=== PATIENT | female | born 1950 | race Caucasian/White ===

== ENCOUNTER → 2017-02-16 | Outpatient (CLI) | payer MEDICARE, OTHER ==
[2017-02-16 11:49] LABS: Cholesterol 148 mg/dL (<200); HDL Cholesterol 52 mg/dL (40-60); Triglycerides 225 mg/dL (<150)
== END | disposition home or self-care (01) ==
LOC: LABWHC1 10:53
PROVIDERS: ATTEND Internal Medicine Interventional Cardiology
DX: E78.5 Hyperlipidemia, unspecified (principal)
CPT/HCPCS: 36415; 80061

== ENCOUNTER 2021-04-17 13:34 | Observation (INO) | payer MEDICARE, OTHER ==
[2021-04-17 14:07] LABS: Glucose,Whole Blood 178 mg/dL (75-99)
[2021-04-17] MEDS ORDERED: SODIUM CHLORIDE 0.9% 500 ML 500 ML IV ONE (14:13)
--- NOTE | 2021-04-17 14:19 | ED ---
General Adult HPI - General Chief complaint: Altered Mental Status Stated complaint: Confusion Time Seen by Provider: 04/17/21 13:40 Source: patient, RN notes reviewed, old records reviewed Mode of arrival: ambulatory Limitations: no limitations - History of Present Illness Initial comments: This is a 71-year-old female presents emergency Department with the complaint that for about 20 minutes she had not remembered anything she had done this morning but currently she remembers everything she had done except having gone to a fast food place this morning . Daughter states she was normal and then there was a 20 minute period where she couldn't remember any of the events that she had done this morning and then after that the patient was back to her baseline. Patient states she does have a headache which was much worse yesterday and she was getting a visual aura yesterday as well as a little visual aura today. Patient denies any numbness weakness. Daughter states was no slurred speech no facial droop. Patient denies any recent fever chills or cough. Patient denies any chest pain difficulty breathing shortness of breath per patient denies any abdominal pain patient denies nausea vomiting diarrhea. - Related Data Allergies Allergy/AdvReac Type Severity Reaction Status Date / Time No Known Allergies Allergy Verified 04/17/21 13:45 Review of Systems ROS Statement: Those systems with pertinent positive or pertinent negative responses have been documented in the HPI. ROS Other: All systems not noted in ROS Statement are negative. Past Medical History Past Medical History: Coronary Artery Disease (CAD), Hyperlipidemia, Hypertension History of Any Multi-Drug Resistant Organisms: None Reported Past Surgical History: Cholecystectomy, Heart Catheterization With Stent Additional Past Surgical History / Comment(s): Stents Past Psychological History: No Psychological Hx Reported Smoking Status: Never smoker Past Alcohol Use History: Occasional Past Drug Use History: None Reported General Exam - General Exam Comments Initial Comments: GENERAL: Patient is well-developed and well-nourished. Patient is nontoxic and well- hydrated and is in no acute distress. ENT: Neck is soft and supple. No significant lymphadenopathy is noted. Oropharynx is clear. Moist mucous membranes. Neck has full range of motion without eliciting any pain. EYES: The sclera were anicteric and conjunctiva were pink and moist. Extraocular movements were intact and pupils were equal round and reactive to light. Eyelids were unremarkable. PULMONARY: Unlabored respirations. Good breath sounds bilaterally. No audible rales rhonchi or wheezing was noted. CARDIOVASCULAR: There is a regular rate and rhythm without any murmurs gallops or rubs. ABDOMEN: Soft and nontender with normal bowel sounds. SKIN: Skin is clear with no lesions or rashes and otherwise unremarkable. NEUROLOGIC: Patient is alert and oriented x3. Cranial nerves II through XII are grossly intact. Motor and sensory are also intact. Normal speech, volume and content. Symmetrical smile. MUSCULOSKELETAL: Normal extremities with adequate strength and full range of motion. No lower extremity swelling or edema. No calf tenderness. LYMPHATICS: No significant lymphadenopathy is noted PSYCHIATRIC: Normal psychiatric evaluation. Limitations: no limitations Course Vital Signs 04/17/21 04/17/21 04/17/21 13:41 14:15 15:00 Temperature 98.3 F Pulse Rate 54 L 78 70 Respiratory 20 16 18 Rate Blood Pressure 188/94 164/72 164/82 O2 Sat by Pulse 97 97 97 Oximetry Medical Decision Making - Medical Decision Making EKG shows sinus rhythm with occasional PVC at a rate of 74 bpm MS interval is 154 QRS is 94 QT interval 384 QTC is 426 per patient's EKG shows ST segment depression and T-wave inversion inferiorly. Currently no old EKG compared found. CT of the brain shows no acute abnormality. Chest x-ray shows no acute normalities. Patient still does not remember eating at a fast food place but everything else this morning she does not remember. I spoke with Dr. Abiel Hdez and he thought it was a good idea for the patient to be admitted to be further evaluated. Patient was in agreement. I spoke with Dr. Weinstein he agreed to admit the patient admitted the patient wrote admitting orders. - Lab Data Result diagrams: 04/17/21 14:19 04/17/21 14:19 Lab Results 04/17/21 04/17/21 04/17/21 Range/Units 14:05 14:19 14:19 WBC 6.9 (3.8-10.6) k/uL RBC 3.97 (3.80-5.40) m/uL Hgb 13.2 (11.4-16.0) gm/dL Hct 37.5 (34.0-46.0) % MCV 94.4 (80.0-100.0) fL MCH 33.1 (25.0-35.0) pg MCHC 35.1 (31.0-37.0) g/dL RDW 13.4 (11.5-15.5) % Plt Count 270 (150-450) k/uL MPV 7.8 Neutrophils % 61 % Lymphocytes % 27 % Monocytes % 4 % Eosinophils % 6 % Basophils % 1 % Neutrophils # 4.2 (1.3-7.7) k/uL Lymphocytes # 1.9 (1.0-4.8) k/uL Monocytes # 0.3 (0-1.0) k/uL Eosinophils # 0.4 (0-0.7) k/uL Basophils # 0.1 (0-0.2) k/uL Sodium (137-145) mmol/L Potassium (3.5-5.1) mmol/L Chloride (98-107) mmol/L Carbon Dioxide (22-30) mmol/L Anion Gap mmol/L BUN (7-17) mg/dL Creatinine (0.52-1.04) mg/dL Est GFR (CKD-EPI)AfAm (>60 ml/min/1.73 sqM) Est GFR (CKD-EPI)NonAf (>60 ml/min/1.73 sqM) Glucose (74-99) mg/dL POC Glucose (mg/dL) 178 H (75-99) mg/dL POC Glu Assistant Distribution Manager ID Calcium (8.4-10.2) mg/dL Total Bilirubin (0.2-1.3) mg/dL AST (14-36) U/L ALT (4-34) U/L Alkaline Phosphatase (38-126) U/L Troponin I (0.000-0.034) ng/mL Total Protein (6.3-8.2) g/dL Albumin (3.5-5.0) g/dL Urine Color Light Yellow Urine Appearance Clear (Clear) Urine pH 6.5 (5.0-8.0) Ur Specific [place] 1.008 (1.001-1.035) Urine Protein Negative (Negative) Urine Glucose (UA) Negative (Negative) Urine Ketones Negative (Negative) Urine Blood Negative (Negative) Urine Nitrite Negative (Negative) Urine Bilirubin Negative (Negative) Urine Urobilinogen <2.0 (<2.0) mg/dL Ur Leukocyte Esterase Negative (Negative) Urine Opiates Screen Detected H (NotDetected) Ur Oxycodone Screen Not Detected (NotDetected) Urine Methadone Screen Not Detected (NotDetected) Ur Propoxyphene Screen Not Detected (NotDetected) Ur Barbiturates Screen Not Detected (NotDetected) U Tricyclic Antidepress Not Detected (NotDetected) Ur Phencyclidine Scrn Not Detected (NotDetected) Ur Amphetamines Screen Not Detected (NotDetected) U Methamphetamines Scrn Not Detected (NotDetected) U Benzodiazepines Scrn Not Detected (NotDetected) Urine Cocaine Screen Not Detected (NotDetected) U Marijuana (THC) Screen Not Detected (NotDetected) 04/17/21 04/17/21 Range/Units 14:19 14:19 WBC (3.8-10.6) k/uL RBC (3.80-5.40) m/uL Hgb (11.4-16.0) gm/dL Hct (34.0-46.0) % MCV (80.0-100.0) fL MCH (25.0-35.0) pg MCHC (31.0-37.0) g/dL RDW (11.5-15.5) % Plt Count (150-450) k/uL MPV Neutrophils % % Lymphocytes % % Monocytes % % Eosinophils % % Basophils % % Neutrophils # (1.3-7.7) k/uL Lymphocytes # (1.0-4.8) k/uL Monocytes # (0-1.0) k/uL Eosinophils # (0-0.7) k/uL Basophils # (0-0.2) k/uL Sodium 139 (137-145) mmol/L Potassium 4.3 (3.5-5.1) mmol/L Chloride 105 (98-107) mmol/L Carbon Dioxide 24 (22-30) mmol/L Anion Gap 10 mmol/L BUN 22 H (7-17) mg/dL Creatinine 0.90 (0.52-1.04) mg/dL Est GFR (CKD-EPI)AfAm 76 (>60 ml/min/1.73 sqM) Est GFR (CKD-EPI)NonAf 66 (>60 ml/min/1.73 sqM) Glucose 176 H (74-99) mg/dL POC Glucose (mg/dL) (75-99) mg/dL POC Glu Assistant Distribution Manager ID Calcium 10.3 H (8.4-10.2) mg/dL Total Bilirubin 0.8 (0.2-1.3) mg/dL AST 27 (14-36) U/L ALT 26 (4-34) U/L Alkaline Phosphatase 89 (38-126) U/L Troponin I <0.012 (0.000-0.034) ng/mL Total Protein 7.4 (6.3-8.2) g/dL Albumin 4.6 (3.5-5.0) g/dL Urine Color Urine Appearance (Clear) Urine pH (5.0-8.0) Ur Specific [place] (1.001-1.035) Urine Protein (Negative) Urine Glucose (UA) (Negative) Urine Ketones (Negative) Urine Blood (Negative) Urine Nitrite (Negative) Urine Bilirubin (Negative) Urine Urobilinogen (<2.0) mg/dL Ur Leukocyte Esterase (Negative) Urine Opiates Screen (NotDetected) Ur Oxycodone Screen (NotDetected) Urine Methadone Screen (NotDetected) Ur Propoxyphene Screen (NotDetected) Ur Barbiturates Screen (NotDetected) U Tricyclic Antidepress (NotDetected) Ur Phencyclidine Scrn (NotDetected) Ur Amphetamines Screen (NotDetected) U Methamphetamines Scrn (NotDetected) U Benzodiazepines Scrn (NotDetected) Urine Cocaine Screen (NotDetected) U Marijuana (THC) Screen (NotDetected) Disposition Clinical Impression: TIA (transient ischemic attack) Disposition: ADMITTED IP TO THIS [facility] Referrals: Osman Estrada MD [Primary Care Provider] - 1-2 days Time of Disposition: 16:14
[2021-04-17 14:41] LABS: Appearance,Urine Clear (Clear); Basophils # (A) 0.1 k/uL (0-0.2); Basophils % (A) 1 %; Bilirubin,Urine Negative (Negative); Blood,Urine Negative (Negative); Color,Urine Light Yellow; Eosinophils # (A) 0.4 k/uL (0-0.7); Eosinophils % (A) 6 %; Glucose,Urine (UA) Negative (Negative); HCT 37.5 % (34.0-46.0); HGB 13.2 gm/dL (11.4-16.0); Ketones,Urine Negative (Negative); Leukocyte Esterase,Urine Negative (Negative); Lymphocytes # (A) 1.9 k/uL (1.0-4.8); Lymphocytes % (A) 27 %; MCH 33.1 pg (25.0-35.0); MCHC 35.1 g/dL (31.0-37.0); MCV 94.4 fL (80.0-100.0); Mean Platelet Volume 7.8; Monocytes # (A) 0.3 k/uL (0-1.0); Monocytes % (A) 4 %; Neutrophils # (A) 4.2 k/uL (1.3-7.7); Neutrophils % (A) 61 %; Nitrite,Urine Negative (Negative); PH, Urine 6.5 (5.0-8.0); Platelet Count 270 k/uL (150-450); Protein,Urine Negative (Negative); RBC 3.97 m/uL (3.80-5.40); RDW 13.4 % (11.5-15.5); Specific Gravity,Urine 1.008 (1.001-1.035); Urobilinogen,Urine <2.0 mg/dL (<2.0); WBC 6.9 k/uL (3.8-10.6)
--- NOTE | 2021-04-17 14:48 | CT ---
EXAMINATION TYPE: CT brain wo con DATE OF EXAM: 04/17/2021 HISTORY: AMS and weakness CT DLP: 1035.4 mGycm. Automated Exposure Control for Dose Reduction was Utilized. TECHNIQUE: CT scan of the head is performed without contrast. COMPARISON: None. FINDINGS: There is no acute intracranial hemorrhage or midline shift identified. There is mild diff use ventricular and sulcal prominence consistent with diffuse age-related cerebral atrophy. There is mild to moderate low-attenuation in the periventricular white matter consistent with chronic small v essel ischemic change. The globes are intact and the visualized sinuses are clear. Patchy cerumen bilateral external auditory canals. IMPRESSION: No acute intracranial hemorrhage or midline shift. There is mild diffuse cerebral atrop hy and mild to moderate chronic small vessel ischemic change noted.
--- NOTE | 2021-04-17 14:49 | XR ---
EXAMINATION TYPE: XR chest 2V DATE OF EXAM: 04/17/2021 COMPARISON: NONE HISTORY: Weakness. TECHNIQUE: Frontal and lateral views of the chest are obtained. FINDINGS: There is chronic parenchymal change without suspicious focal air space opacity, pleural ef fusion, or pneumothorax seen. The cardiac silhouette size is within normal limits. S shaped scoliosi s with multilevel spurring in the spine. IMPRESSION: No acute cardiopulmonary process.
[2021-04-17 14:53] LABS: Amphetamine Screen,Urine Not Detected (NotDetected); Barbiturate Screen,Urine Not Detected (NotDetected); Benzodiazepines Screen,Urine Not Detected (NotDetected); Cocaine Screen,Urine Not Detected (NotDetected); Methadone Screen, Urine Not Detected (NotDetected); Opiate Screen,Urine Detected (NotDetected); Oxycodone Screen, Urine Not Detected (NotDetected); Phencyclidine Screen,Urine Not Detected (NotDetected); Tricyclic Antidepressant,Urine Not Detected (NotDetected); Urn Cannabinoid Scrn Not Detected (NotDetected)
[2021-04-17 14:55] LABS: Albumin 4.6 g/dL (3.5-5.0); Calcium 10.3 mg/dL (8.4-10.2); Potassium 4.3 mmol/L (3.5-5.1); Total Bilirubin 0.8 mg/dL (0.2-1.3); Total Protein 7.4 g/dL (6.3-8.2)
[2021-04-17] MEDS ORDERED: ASPIRIN 325 MG TAB PO STA (16:14)
--- NOTE | 2021-04-17 21:31 | P.HPIM ---
History of Present Illness H&P Date: 04/17/21 Chief Complaint: TIA/CVA, temporary amnesia, severe headache, history of CAD with stent plac HISTORY OF PRESENT ILLNESS 71-year-old female one of Dr. Estrada patient with past medical history of CAD post angioplasty and stent placement of right coronary artery back in 2012, patient also known to have history of hypertension, hyperlipidemia, hyperglycemia who has been doing well, earlier today patient developed to have right-sided frontal headache above the right eye she took [place] at the time minute ended up going with her daughter to one of the hardware store and patient might then developed to have significant amnesia had lost time from before and after she described visual aura with visual hallucination at the time but never had any sign of amnesia in the past. Sort of headache earlier was most likely migraine type the patient has not seen any neurologist was not labile and he classified previously. [place] patient was seen in demurs department evaluated ended up going for testing including CT of the brain showed no acute intracranial hemorrhage there is mild diffuse cerebral atrophy and mild to moderate chronic small vessel disease only. Laboratory values showed mildly elevated blood sugar with calcium of 10.3 her urine was negative drug screen showed sign of. Most likely from hydrocodone, blood sugar was quite bit high around 176 rest of her lab work it. Admit patient to demurs department and apparently the decision was after talking to neurology about keeping patient for workup on her amnesia to treated as a CVA patient be seen neurology possibly MRI of the brain will be done carotid and echo will be order patient [place] exam will be done every 2 hours overnight. In the meanwhile target control her blood pressure better and see if he have any further episodes and start patient on physical therapy. REVIEW OF SYSTEMS Constitutional: No fever, no chills, no night sweats. No weight change. No weakness, fatigue or lethargy. No daytime sleepiness. Mild amnesia early and slight visual aura. EENT: Positive headache. Positive blurred vision or double vision, no loss of vision. No loss of Hearing, no ringing in the ears, no dizziness. No nasal drainage or congestion. No epistaxis. No sore throat. Lungs: No shortness of breath, cough, no sputum production. No wheezing. Cardiovascular: No chest pain, no lower extremity edema. No palpitations. No paroxysmal nocturnal dyspnea. No orthopnea. No lightheadedness or dizziness. No syncopal episodes. Abdominal: No abdominal pain. No nausea, vomiting. No diarrhea. No constipation. No bloody or tarry stools.. No loss of appetite. Genitourinary: No dysuria, increased frequency, urgency. No urinary retention. Musculoskeletal: No myalgias. No muscle weakness, no gait dysfunction, no frequent falls. No back pain. No neck pain. Integumentary: No wounds, no lesions. No rash or pruritus. No unusual bruising. No change in hair or nails. Neurologic: Still described mild amnesia otherwise patient is alert and oriented with no focal deficit.. Psychiatric: No depression. No anxiety. No mood swings. Endocrine: No abnormal blood sugars. No weight change. No excessive sweating or thirst. No cold intolerance. SOCIAL HISTORY She does not smoke, drink psychosocially she is a retired used to work in factory,. She is and live with her . FAMILY HISTORY Father age 57 from CAD, mother age 74 from CVA, patient had to sister both living and well one brother with no major medical problem. PHYSICAL EXAMINATION Gen: This is a well-developed laying in bed does not look in any respiratory distress may be mildly overweight only. HEENT: Head is atraumatic, normocephalic. Pupils equal, round. Sclerae is anicteric. NECK: Supple. No JVD. No lymphadenopathy. No thyromegaly. LUNGS: Clear to auscultation. No wheezes or rhonchi. No intercostal retractions. HEART: Regular rate and rhythm. No murmur. ABDOMEN: Soft. Bowel sounds are present. No masses. No tenderness. EXTREMITIES: No pedal edema. No calf tenderness. NEUROLOGICAL: Patient is awake, alert and oriented x3. Cranial nerves 2 through 12 are grossly intact. ASSESSMENT AND PLAN 1 TIA/CVA: With amnesia not clear etiology, could be tiny stroke, could be metabolic problem electrolyte imbalance infection and other. CAT scan of the brain did not show any abnormality carotid and echo along with EEG be done. 2 acute amnesia: Secondary to TIA or CVA not a clear etiology otherwise continue supportive care speech physical therapy be started patient might benefit from being on antiplatelet agent. 3 atherosclerotic heart disease: Patient remain seen cardiology on regular basis has been on metoprolol, losartan, atorvastatin. 4 hypothyroidism: Remain on levothyroxine 125 g daily. 5 migraine/atypical advance headache, patient remain not symptomatic at this point. 7 DVT prophylaxis: Continue patient on aspirin. 8 GI prophylaxis: Continue Pepcid with good result.. CODE STATUS: Full code. Admit patient to the hospital for overnight stay. Past Medical History Past Medical History: Coronary Artery Disease (CAD), Hyperlipidemia, Hypertension History of Any Multi-Drug Resistant Organisms: None Reported Past Surgical History: Cholecystectomy, Heart Catheterization With Stent Additional Past Surgical History / Comment(s): Stents Date of Last Stent Placement:: 01/2013 Past Psychological History: No Psychological Hx Reported Smoking Status: Never smoker Past Alcohol Use History: Occasional Past Drug Use History: None Reported Medications and Allergies Home Medications Medication Instructions Recorded Confirmed Type Allopurinol [Zyloprim] 100 mg PO DAILY 04/17/21 04/17/21 History Aspirin EC [Ecotrin Low Dose] 81 mg PO HS 04/17/21 04/17/21 History Atorvastatin Calcium [Lipitor] 10 mg PO HS 04/17/21 04/17/21 History Calcium Carbonate [Calcium] 600 mg PO HS 04/17/21 04/17/21 History Cetirizine HCl 10 mg PO DAILY PRN 04/17/21 04/17/21 History Cholecalciferol [Vitamin D3 (25 50 mcg PO DAILY 04/17/21 04/17/21 History Mcg = 1000 Iu)] Famotidine [Pepcid AC] 10 mg PO DAILY PRN 04/17/21 04/17/21 History HYDROcodone/APAP 7.5-325MG [[place] 1 tab PO Q6H PRN 04/17/21 04/17/21 History 7.5-325] Ibuprofen [Motrin] 800 mg PO AC-TID PRN 04/17/21 04/17/21 History Levothyroxine Sodium [Synthroid] 125 mcg PO AC-BRKFST 04/17/21 04/17/21 History Losartan Potassium 100 mg PO DAILY 04/17/21 04/17/21 History Metoprolol Tartrate [Lopressor] 50 mg PO BID 04/17/21 04/17/21 History Multivitamins, Thera [Multivitamin 1 tab PO DAILY 04/17/21 04/17/21 History (formulary)] [place]-3 Fatty Acids/Fish Oil [Fish 1 cap PO DAILY 04/17/21 04/17/21 History Oil 1,000 mg Softgel] Turmeric Root Extract [Turmeric] 500 mg PO DAILY 04/17/21 04/17/21 History Allergies Allergy/AdvReac Type Severity Reaction Status Date / Time No Known Allergies Allergy Verified 04/17/21 16:59 Physical Exam Vitals: Vital Signs Temp Pulse Pulse Resp BP BP Pulse Ox 04/17/21 20:00 97.9 F 82 18 190/76 97 04/17/21 18:15 98.2 F 68 18 138/74 96 04/17/21 17:15 77 18 160/78 97 04/17/21 16:15 82 20 158/87 97 04/17/21 15:00 70 18 164/82 97 04/17/21 14:15 78 16 164/72 97 04/17/21 13:41 98.3 F 54 L 20 188/94 97 Intake and Output 04/17/21 04/17/21 04/17/21 06:59 14:59 22:59 Other: Weight 86.183 kg 86.183 kg Results CBC & Chem 7: 04/17/21 14:19 04/17/21 14:19 Labs: Abnormal Lab Results - Last 24 Hours (Table) 04/17/21 04/17/21 04/17/21 Range/Units 14:05 14:19 14:19 BUN 22 H (7-17) mg/dL Glucose 176 H (74-99) mg/dL POC Glucose (mg/dL) 178 H (75-99) mg/dL Calcium 10.3 H (8.4-10.2) mg/dL Urine Opiates Screen Detected H (NotDetected) Thrombosis Risk Factor Assmnt - Choose All That Apply Each Factor Represents 1 point: Obesity (BMI >25) Other Risk Factors: Yes Each Risk Factor Represents 2 Points: Age 61-74 years Thrombosis Risk Factor Assessment Total Risk Factor Score: 3 Thrombosis Risk Factor Assessment Level: Moderate Risk
[2021-04-17] MEDS ORDERED: HYDROcodone/APAP 7.5-325MG 1 EACH TAB PO PRN (22:21)
[2021-04-17] MEDS ORDERED: LORATADINE 10 MG TAB PO PRN (22:21)
[2021-04-17] MEDS ORDERED: FAMOTIDINE 20 MG TAB PO PRN (22:21)
[2021-04-17] MEDS ORDERED: ATORVASTATIN 10 MG TAB PO SCH (22:45)
[2021-04-17] MEDS ORDERED: CALCIUM CARBONATE 500 MG CHEWABLE PO SCH (22:45)
[2021-04-18] MEDS: METOPROLOL TARTRATE 50 MG TAB PO SCH ×2 (00:04→09:27)
[2021-04-18 06:03] LABS: Folate, Serum >24.0 ng/mL
[2021-04-18] MEDS ORDERED: LEVOTHYROXINE 125 MCG TAB PO SCH (07:30)
[2021-04-18] MEDS ORDERED: CHOLECALCIFEROL 25 MCG (1000 IU) TABLET PO SCH (09:00)
[2021-04-18] MEDS ORDERED: NON FORMULARY DRUG (Omega-3 Fatty Acids/Fish Oil [Fish Oil 1,000 Mg Softgel] 1 EACH Capsul PO SCH (09:00)
[2021-04-18] MEDS ORDERED: NON FORMULARY DRUG (Turmeric Root Extract [Turmeric] 500 MG Capsule) PO SCH (09:00)
[2021-04-18] MEDS ORDERED: allopurinoL 100 MG TAB PO SCH (09:00)
[2021-04-18] MEDS ORDERED: LOSARTAN 50 MG TAB PO SCH (09:00)
[2021-04-18] MEDS ORDERED: MULTIVITAMINS, THERA 1 EACH TAB PO SCH (09:00)
--- NOTE | 2021-04-18 09:16 | P.CNNES ---
History of Present Illness Consult date: 04/18/21 Requesting physician: Adrian Richards Reason for Consult: transient amnesia concern for TIA History of Present Illness: This is a 71-year-old woman with medical history of hypertension (for past 15 years), hyperlipidemia, coronary artery disease status post stenting, hypothyroidism who presented to the emergency department on 04/17/2021 because of an episode of 15-20 minutes not remembering anything. Patient stated that on 04/17/2021 around 1pm she had an episode where she was accompanied with her daughter and could not remember what transpired. She said prior to the events use that on her daughter that she was hungry. As as a result they went to a fast food restaurant. She stated that she she did not remember her pulling out of the fast food restaurant and did not remember her of stepping out of the car and letting her daughter drives. Since her daughter felt that the patient's had an episode of confusion. Patient denies any jerk in of any extremities. Denies any history of strokes or TIAs. She stated that the she has been on a new medication at the sleeping medications called midnight but does not know what the ingredients other than the melatonin. She stated that that she had that to the migraine-like episodes in the past 1 about 5-6 years ago which she had a headache and then she had a halo around both her eyes and the headache was a severe bed. She also had another headache about the 2 years ago. She stated that she had a headache this past Wednesday in which she had right frontal headache and the headache was 10 over 10 that was throbbing. Denies any photophobia, phonophobia and nausea or vomiting. She denies any visual aura is associate with a headache. She took Peck and put a cold rag on her head and that resolved. The headache lasted for 45 minutes. Patient denies any the headaches yesterday during this episode. Patient denies of any focal weakness, numbness, visual disturbance, difficulty getting her words out or swallowing. She denies of any headache nausea or vomiting. She stated for the last 1-2 month as she is not feeling well. She denies of any fever. She does have history of hypertension but denies a checking her blood pressure. Patient has chronic lower back pain and right knee pain. Some of the patient's home medication consist of aspirin 81 mg, Lipitor 10 mg, Synthroid, losartan, Lopressor, vitamin D3, allopurinol, Pepcid, cetirizine. Some of the workup in the hospital consisted of: Initial vital signs was blood pressure of 188/94, heart rate 54, respiratory of 20, temperature of 98.3 Fahrenheit oral and pulse ox of 97% at room air. CT of the head is reported as no acute intracranial hemorrhage or midline shift. There is mild diffuse cerebral atrophy and mild to moderate chronic small vessel ischemic changes noted. EKG is reported as sinus rhythm with occasional premature ventricular complexes. ST and T-wave abnormality, consider inferior ischemia. Abnormal EKG. CBC with differential is unremarkable. Chemistry panel is the glucose POC is 178 which is slightly elevated. The calcium is 10.3 which is minimally elevated. Otherwise the chemistry panel is unremarkable. AST of 27 ALT of 26, TSH of 0.430 which are all within normal limits. Urine tox screen is positive for opiates. Review of Systems Review of system: The 12 point system was reviewed and apparent positive and negative per HPI. Past Medical History Past Medical History: Coronary Artery Disease (CAD), Hyperlipidemia, Hypertension History of Any Multi-Drug Resistant Organisms: None Reported Past Surgical History: Cholecystectomy, Heart Catheterization With Stent Additional Past Surgical History / Comment(s): Stents Date of Last Stent Placement:: 01/2013 Past Psychological History: No Psychological Hx Reported Smoking Status: Never smoker Past Alcohol Use History: Occasional Past Drug Use History: None Reported Medications and Allergies Home Medications Medication Instructions Recorded Confirmed Type Allopurinol [Zyloprim] 100 mg PO DAILY 04/17/21 04/17/21 History Aspirin EC [Ecotrin Low Dose] 81 mg PO HS 04/17/21 04/17/21 History Atorvastatin Calcium [Lipitor] 10 mg PO HS 04/17/21 04/17/21 History Calcium Carbonate [Calcium] 600 mg PO HS 04/17/21 04/17/21 History Cetirizine HCl 10 mg PO DAILY PRN 04/17/21 04/17/21 History Cholecalciferol [Vitamin D3 (25 50 mcg PO DAILY 04/17/21 04/17/21 History Mcg = 1000 Iu)] Famotidine [Pepcid AC] 10 mg PO DAILY PRN 04/17/21 04/17/21 History HYDROcodone/APAP 7.5-325MG [Peck 1 tab PO Q6H PRN 04/17/21 04/17/21 History 7.5-325] Ibuprofen [Motrin] 800 mg PO AC-TID PRN 04/17/21 04/17/21 History Levothyroxine Sodium [Synthroid] 125 mcg PO AC-BRKFST 04/17/21 04/17/21 History Losartan Potassium 100 mg PO DAILY 04/17/21 04/17/21 History Metoprolol Tartrate [Lopressor] 50 mg PO BID 04/17/21 04/17/21 History Multivitamins, Thera [Multivitamin 1 tab PO DAILY 04/17/21 04/17/21 History (formulary)] [place]-3 Fatty Acids/Fish Oil [Fish 1 cap PO DAILY 04/17/21 04/17/21 History Oil 1,000 mg Softgel] Turmeric Root Extract [Turmeric] 500 mg PO DAILY 04/17/21 04/17/21 History Allergies Allergy/AdvReac Type Severity Reaction Status Date / Time No Known Allergies Allergy Verified 04/17/21 16:59 Physical Examination - Vital Signs Vital Signs: Vital Signs Temp Pulse Pulse Resp BP BP Pulse Ox 04/18/21 07:37 96 04/18/21 07:00 97.9 F 55 L 16 144/74 98 04/18/21 02:00 97.6 F 75 16 125/73 97 04/17/21 20:00 97.9 F 82 18 190/76 97 04/17/21 19:20 75 16 04/17/21 18:15 98.2 F 68 18 138/74 96 04/17/21 17:15 77 18 160/78 97 04/17/21 16:15 82 20 158/87 97 04/17/21 15:00 70 18 164/82 97 04/17/21 14:15 78 16 164/72 97 04/17/21 13:41 98.3 F 54 L 20 188/94 97 Intake and Output 04/17/21 04/18/21 04/18/21 22:59 06:59 14:59 Other: # Voids 2 2 Weight 86.183 kg GENERAL: The patient is lying in bed and is not in acute distress. CHEST: The heart rate is regular rate rhythm. No murmurs to auscultation. No carotid bruit bilaterally. LUNG: Clear to auscultation bilaterally no wheezing noted throughout. Not labored breathing. ABDOMEN/GI: Bowel sounds present in all 4 quadrants. No tenderness to palpation throughout. NEUROLOGICAL: Higher mental function: The patient is awake, alert, oriented to self, place and time. Patient is following commands. No aphasia and no neglect. Cranial nerves: The pupils are round, equal and reactive to light and accommodation. Visual benavidez are full to confrontation throughout. Extraocular movement is intact no nystagmus is noted. Facial sensation is normal to touch throughout. The facial strength is normal throughout. Hearing is normal bilaterally to hand rub. Tongue is midline and moved [id number] without any difficulty. No dysarthria is noted. Shoulder shrug is normal bilaterally. Motor: Gait is antalgic (has chronic back pain and right knee pain). The strength is 5 over 5 throughout. Normal tone and bulk. Cerebellum: Normal finger to nose heel to chin bilaterally. Sensation: Sensation is normal to touch throughout. Reflexes (right/left): 2+ throughout except right knee is 1+. Plantars are downgoing bilaterally. Results Urinalysis is negative for urinary tract infection Casiano virus PCR was not detected - Laboratory Findings CBC and BMP: 04/17/21 14:19 04/17/21 14:19 Abnormal Lab Findings: Abnormal Labs 04/17/21 04/17/21 04/17/21 14:05 14:19 14:19 BUN 22 H Glucose 176 H POC Glucose (mg/dL) 178 H Calcium 10.3 H Urine Opiates Screen Detected H Assessment and Plan Assessment: * Transient global amnesia (lasting 15 to 20 minutes not remembering what transpired events yesterday in early afternoon). Unknown exact etiology. One of consideration is patient has been on new medication to help sleep "Midnight" and not sure if this is cause vs other etiologies. * Hypertension * Chronic lower back pain * Right knee pain * Hyperlipidemia * Coronary artery disease status post stent * Hypothyroidism Plan: * CT of the head is reported as no acute intracranial hemorrhage or midline shift. There is mild diffuse cerebral atrophy and mild to moderate chronic small vessel ischemic changes noted. * AST of 27 ALT of 26, TSH of 0.430 which are all within normal limits. * Urine tox screen is positive for opiates. * MRI of the brain is ordered. * EEG is ordered. We'll not start the patient on antiepileptic drugs unless there is epileptiform discharges or seizure on the EEG. * Patient was continued to her home dose of aspirin 81 and Lipitor 10 mg daily. * 2-D echo is ordered and is pending * Pending lipid panel, vitamin B12 and folate level. * PT, OT and FAMILY LAW ATTORNEY are consulted. * Patient is on continuous cardiac monitoring. * On every 4 hours neuro checks. * This was notified to stop taking the new medication (for sleeping). * She was notified to monitor her blood pressure at home and keep a log. * Regarding headache she had two to three headache. Few of headache are migraine but is not having it frequently to start any medication for now. She needs to keep a log of her headaches and keep blood pressure monitor and to be evaluated further as outpatient if headaches worsens. If EEG does not show seizure/epileptiform discharges and MRI is negative. Then patient is clear from neurology. She needs to follow-up as outpatient with neurology team within 1-2 weeks. We'll defer the rest of the medical management to primary team. Thank you for the consultation. Abiel Hdez M.D. Neuro-hospitalist Time with Patient: Greater than 30
--- NOTE | 2021-04-18 11:28 | MR ---
EXAMINATION TYPE: MR brain wo/w con DATE OF EXAM: 04/18/2021 COMPARISON: HISTORY: Amnesia. R/O stroke vs other intracranial process. CONTRAST: Performed utilizing 8.5 mL intravenous Gadavist gadolinium contrast. TECHNIQUE: Multiplanar, multiecho imaging on a 3.0 Elvira magnet is performed through the brain. Stud y is performed within 24 hours of arrival to the hospital. The craniovertebral junction is normal. The pituitary is normal. Diffusion-weighted imaging is performed. No abnormal hyperintensity is present to suggest an acute i ntracranial infarct or acute ischemic change. There are scattered punctate areas of hyperintensity on T2 and Inversion Recovery weighted sequences which are non-specific but can be related to microvascular ischemic changes. Ventricles and sulci are appropriate for the patient age. No abnormal enhancement is evident. IMPRESSIONS: 1. Multiple periventricular white matter changes can be compatible with chronic microvascular ischemi c change. No suspicious acute intracranial changes.
--- NOTE | 2021-04-18 14:08 | P.DS ---
Providers Date of admission: 04/17/21 16:23 Expected date of discharge: 04/18/21 Attending physician: Marcelino Weinstein Consults: 04/17/21 16:16 Consult Physician Routine Consulting Provider: Abiel Hdez Consult Reason/Comments: TIA Do you want consulting provider notified?: Yes Primary care physician: Osman Estrada [facility] Course: HISTORY OF PRESENT ILLNESS 71-year-old female one of Dr. Estrada patient with past medical history of CAD post angioplasty and stent placement of right coronary artery back in 2012, patient also known to have history of hypertension, hyperlipidemia, hyperglycemia who has been doing well, earlier today patient developed to have right-sided frontal headache above the right eye she took Ripley at the time minute ended up going with her daughter to one of the hardware store and patient might then developed to have significant amnesia had lost time from before and after she described visual aura with visual hallucination at the time but never had any sign of amnesia in the past. Sort of headache earlier was most likely migraine type the patient has not seen any neurologist was not labile and he classified previously. [place] patient was seen in demurs department evaluated ended up going for testing including CT of the brain showed no acute intracranial hemorrhage there is mild diffuse cerebral atrophy and mild to moderate chronic small vessel disease only. Laboratory values showed mildly elevated blood sugar with calcium of 10.3 her urine was negative drug screen showed sign of. Most likely from hydrocodone, blood sugar was quite bit high around 176 rest of her lab work it. Admit patient to demurs department and apparently the decision was after talking to neurology about keeping patient for workup on her amnesia to treated as a CVA patient be seen neurology possibly MRI of the brain will be done carotid and echo will be order patient [place] exam will be done every 2 hours overnight. In the meanwhile target control her blood pressure better and see if he have any further episodes and start patient on physical therapy. 04/18: Patient was seen titrated by neurology no sign or any evidence of stroke was found, MRI of the brain didn't show any abnormality, verbal EEG came back negative with no seizure activity. Ration apparently was on sort of sleeping aid OTC has use of the night before which probably had affected her memory and recall and probably created the temporary amnesia. Patient will be off the medication completely also be treated slightly with more aggressive for migraine and avoid having any aura problem. REVIEW OF SYSTEMS Constitutional: No fever, no chills, no night sweats. No weight change. No weakness, fatigue or lethargy. No daytime sleepiness. Mild amnesia early and slight visual aura. EENT: Positive headache. Positive blurred vision or double vision, no loss of vision. No loss of Hearing, no ringing in the ears, no dizziness. No nasal drainage or congestion. No epistaxis. No sore throat. Lungs: No shortness of breath, cough, no sputum production. No wheezing. Cardiovascular: No chest pain, no lower extremity edema. No palpitations. No paroxysmal nocturnal dyspnea. No orthopnea. No lightheadedness or dizziness. No syncopal episodes. Abdominal: No abdominal pain. No nausea, vomiting. No diarrhea. No constipation. No bloody or tarry stools.. No loss of appetite. Genitourinary: No dysuria, increased frequency, urgency. No urinary retention. Musculoskeletal: No myalgias. No muscle weakness, no gait dysfunction, no frequent falls. No back pain. No neck pain. Integumentary: No wounds, no lesions. No rash or pruritus. No unusual bruising. No change in hair or nails. Neurologic: Still described mild amnesia otherwise patient is alert and oriented with no focal deficit.. Psychiatric: No depression. No anxiety. No mood swings. Endocrine: No abnormal blood sugars. No weight change. No excessive sweating or thirst. No cold intolerance. PHYSICAL EXAMINATION Gen: This is a well-developed laying in bed does not look in any respiratory distress may be mildly overweight only. HEENT: Head is atraumatic, normocephalic. Pupils equal, round. Sclerae is anicteric. NECK: Supple. No JVD. No lymphadenopathy. No thyromegaly. LUNGS: Clear to auscultation. No wheezes or rhonchi. No intercostal retractions. HEART: Regular rate and rhythm. No murmur. ABDOMEN: Soft. Bowel sounds are present. No masses. No tenderness. EXTREMITIES: No pedal edema. No calf tenderness. NEUROLOGICAL: Patient is awake, alert and oriented x3. Cranial nerves 2 through 12 are grossly intact. ASSESSMENT AND PLAN 1 TIA/CVA: With amnesia not clear etiology, most likely was side effect of medication no evidence for stroke at this point. 2 acute amnesia: Secondary to TIA possible effect of her OTC sleeping aid 3 atherosclerotic heart disease: Patient remain seen cardiology on regular basis has been on metoprolol, losartan, atorvastatin. 4 hypothyroidism: Remain on levothyroxine 125 g daily. 5 migraine/atypical advance headache, patient remain not symptomatic at this point. 7 DVT prophylaxis: Continue patient on aspirin. Patient felt much better on 04/18/2021 stable with no further complication patient be discharged home to follow-up with PCP early this week. Plan - Discharge Summary New Discharge Prescriptions: Continue Levothyroxine Sodium [Synthroid] 125 mcg PO AC-BRKFST Allopurinol [Zyloprim] 100 mg PO DAILY [place]-3 Fatty Acids/Fish Oil [Fish Oil 1,000 mg Softgel] 1 cap PO DAILY Ibuprofen [Motrin] 800 mg PO AC-TID PRN PRN Reason: Pain HYDROcodone/APAP 7.5-325MG [Ripley 7.5-325] 1 tab PO Q6H PRN PRN Reason: Pain Cholecalciferol [Vitamin D3 (25 Mcg = 1000 Iu)] 50 mcg PO DAILY Turmeric Root Extract [Turmeric] 500 mg PO DAILY Famotidine [Pepcid AC] 10 mg PO DAILY PRN PRN Reason: Heartburn Metoprolol Tartrate [Lopressor] 50 mg PO BID Losartan Potassium 100 mg PO DAILY Cetirizine HCl 10 mg PO DAILY PRN PRN Reason: Allergy Symptoms Multivitamins, Thera [Multivitamin (formulary)] 1 tab PO DAILY Calcium Carbonate [Calcium] 600 mg PO HS Atorvastatin Calcium [Lipitor] 10 mg PO HS Aspirin EC [Ecotrin Low Dose] 81 mg PO HS Discharge Medication List Allopurinol [Zyloprim] 100 mg PO DAILY 04/17/21 [History] Aspirin EC [Ecotrin Low Dose] 81 mg PO HS 04/17/21 [History] Atorvastatin Calcium [Lipitor] 10 mg PO HS 04/17/21 [History] Calcium Carbonate [Calcium] 600 mg PO HS 04/17/21 [History] Cetirizine HCl 10 mg PO DAILY PRN 04/17/21 [History] Cholecalciferol [Vitamin D3 (25 Mcg = 1000 Iu)] 50 mcg PO DAILY 04/17/21 [History] Famotidine [Pepcid AC] 10 mg PO DAILY PRN 04/17/21 [History] HYDROcodone/APAP 7.5-325MG [[place] 7.5-325] 1 tab PO Q6H PRN 04/17/21 [History] Ibuprofen [Motrin] 800 mg PO AC-TID PRN 04/17/21 [History] Levothyroxine Sodium [Synthroid] 125 mcg PO AC-BRKFST 04/17/21 [History] Losartan Potassium 100 mg PO DAILY 04/17/21 [History] Metoprolol Tartrate [Lopressor] 50 mg PO BID 04/17/21 [History] Multivitamins, Thera [Multivitamin (formulary)] 1 tab PO DAILY 04/17/21 [History] [place]-3 Fatty Acids/Fish Oil [Fish Oil 1,000 mg Softgel] 1 cap PO DAILY 04/17/21 [History] Turmeric Root Extract [Turmeric] 500 mg PO DAILY 04/17/21 [History] Follow up Appointment(s)/Referral(s): Osman Estrada MD [Primary Care Provider] - 1-2 days Discharge Disposition: HOME SELF-CARE
[2021-04-18 16:12] VITALS: BP 129/73; PULSE 57; RESP 18; TEMP 98.7
--- NOTE | 2021-04-18 18:00 | ECHOF ---
Referral Reason:TIA MEASUREMENTS -------- HEIGHT: 165.1 cm WEIGHT: 86.2 kg BP: 125/73 RVIDd: 1.9 cm (< 3.3) IVSd: 1.4 cm (0.6 - 1.1) LVIDd: 5.1 cm (3.9 - 5.3) LVPWd: 1.5 cm (0.6 - 1.1) IVSs: 1.8 cm LVIDs: 3.2 cm LVPWs: 2.4 cm LAESV Index (A-L): 43.26 ml/m Ao Diam: 3.0 cm (2.0 - 3.7) AV Cusp: 1.7 cm (1.5 - 2.6) LA Diam: 4.1 cm (2.7 - 3.8) MV EXCURSION: 14.230 mm (> 18.000) MV EF SLOPE: 33 mm/s (70 - 150) EPSS: 1.0 cm MV E Ruben: 1.58 m/s MV DecT: 240 ms MV A Ruben: 0.88 m/s MV E/A Ratio: 1.79 AR PHT: 719 ms RAP: 5.00 mmHg RVSP: 33.46 mmHg FINDINGS -------- This was a technically good study. The left ventricular size is normal. There is moderate concentric left ventricular hypertrophy. O verall left ventricular systolic function is low-normal with, an EF between 50 - 55 %. The right ventricle is normal in size. LA is severely dilated >40 ml/m2 The right atrial size is normal. Aortic valve is trileaflet and is mildly thickened. There is mild aortic regurgitation. The mitral valve is normal. The mitral valve leaflets are moderately thickened. Moderate mitral a nnular calcification present. Moderate mitral regurgitation is present. The peak and mean MV gra dients are 12.93mmHg 4.08mmHg as measured by doppler. [id number] mitral stenosis. Cannot ru le out vegetation. The tricuspid valve appears structurally normal. Mild tricuspid regurgitation present. Right vent ricular systolic pressure is normal at < 35 mmHg. There is no pulmonic regurgitation present. The aortic root size is normal. Normal inferior vena cava with normal inspiratory collapse consistent with estimated right atrial pre ssure of 5 mmHg. There is a trivial pericardial effusion present. CONCLUSIONS -------- 1. The left ventricular size is normal. 2. There is moderate concentric left ventricular hypertrophy. 3. Overall left ventricular systolic function is low-normal with, an EF between 50 - 55 %. 4. LA is severely dilated >40 ml/m2 5. Aortic valve is trileaflet and is mildly thickened. 6. There is mild aortic regurgitation. 7. The mitral valve leaflets are moderately thickened. 8. Moderate mitral annular calcification present. 9. Moderate mitral regurgitation is present. 10. The peak and mean MV gradients are 12.93mmHg 4.08mmHg as measured by doppler. 11. [id number] mitral stenosis. 12. Cannot rule out vegetation. 13. Mild tricuspid regurgitation present. 14. There is a trivial pericardial effusion present. BANK APPRAISER: Pushpa Lutz RDCS
--- NOTE | 2021-04-18 18:14 | EEG ---
ELECTROENCEPHALOGRAM REPORT DATE OF SERVICE: 04/18/2021. This is a 71-year-old white man with an episode of 15-20 minutes of transient amnesia. The video EEG is obtained to evaluate for seizure epileptiform activity. RELEVANT MEDICATION: The patient is not on any antiepileptic drugs. EEG TYPE: A routine 21 channel EEG is performed with video using the 10/20 electrode system. DESCRIPTION: Wakefulness, drowsiness and stage II sleep was obtained. During wakefulness, there is a posterior dominant rhythm of low to moderate voltage, well modulated, of 8-8.5 hertz activity. During drowsiness, there is slowing and attenuation of background activity. During stage 2 sleep, there are sleep spindles and K complexes. There is no focal slowing. Interictal and ictal is none. ACTIVATION PROCEDURES: Photic stimulation did not evoke a posterior driving response. Hyperventilation is not performed. CLINICAL INTERPRETATION: This is a normal routine EEG. There are no focal slowing, epileptiform discharges or seizure on the EEG. Clinical correlation is recommended. RAN / JORDY: [id number] / JORI
[2021-04-18 20:37] LABS: Chol/HDL Ratio 3.66; LDL Cholesterol,Calculated 54.4 mg/dL (0.0-131.0); VLDL Calculation 62.6 mg/dL (5.00-40.00)
[2021-04-18] MEDS ORDERED: ASPIRIN 81 MG PO SCH (21:00)
[2021-04-19] MEDS ORDERED: ASPIRIN 325 MG TAB PO SCH (09:00)
== END 2021-04-18 16:42 | disposition home or self-care (01) ==
LOC: EC 13:34 → 6NMEDSUR 16:23
PROVIDERS: ADMIT Internal Medicine Geriatric Medicine; ATTEND Internal Medicine Geriatric Medicine
DX: G45.9 Transient cerebral ischemic attack, unspecified (principal); G45.4 Transient global amnesia; G43.109 Migraine with aura, not intractable, without status migrainosus; I25.10 Atherosclerotic heart disease of native coronary artery without angina pectoris; E78.5 Hyperlipidemia, unspecified; I10 Essential (primary) hypertension; E03.9 Hypothyroidism, unspecified; I49.3 Ventricular premature depolarization; I67.82 Cerebral ischemia; R73.9 Hyperglycemia, unspecified; E66.9 Obesity, unspecified; Z68.31 Body mass index [BMI] 31.0-31.9, adult; G89.29 Other chronic pain; M54.5 Low back pain; M25.561 Pain in right knee; Z20.822 Contact with and (suspected) exposure to COVID-19; Z79.82 Long term (current) use of aspirin; Z79.890 Hormone replacement therapy; Z79.899 Other long term (current) drug therapy; Z90.49 Acquired absence of other specified parts of digestive tract; Z95.5 Presence of coronary angioplasty implant and graft; Z82.3 Family history of stroke; Z82.49 Family history of ischemic heart disease and other diseases of the circulatory system
CPT/HCPCS: 96360; 99285; 36415; 94760; 95819; 93005; 93306; 97161; 97165; 92523; 80061; 80053; 84443; 82607; 82746; 84484; 85025; 81003; 80306; 87635; 71046; 70450; 70553; G0378 ×2; A9585

== ENCOUNTER 2022-03-26 06:31 | Day surgery (SDC) | payer MEDICARE ==
[2022-03-24 14:34] VITALS: BMI 32.3
[~2022-03-26 06:31] MED LIST: LACTATED RINGERS 1,000 ML IV SCH; SODIUM CHLORIDE 0.9% 1,000 ML IV SCH
[2022-03-26 07:00] VITALS: TEMP 97.9
[2022-03-26 07:31] LABS: Calcium 9.8 mg/dL (8.4-10.2); Potassium 4.3 mmol/L (3.5-5.1)
[2022-03-26] MEDS ORDERED: PROPOFOL 10 MG/ML 20 ML VIAL IV ONE (07:45)
[2022-03-26] MEDS ORDERED: LIDOCAINE 2% INJ 20 MG/ML (2 ML VIAL) ONE (07:45)
[2022-03-26] MEDS ORDERED: IV FLUID CONTINUATION 200 ML IV ONE (07:51)
[2022-03-26 08:05] VITALS: RESP 16
--- NOTE | 2022-03-26 09:26 | P.PCN ---
Date of Procedure: 03/26/22 Operative Findings: TRANSESOPHAGEAL ECHOCARDIOGRAM ELECTRONEURODIAGNOSTIC TECHNICIAN: PRIMO ANN MD, RPVI INDICATION: This is a 72-year-old female patient was diagnosed recently with symptomatic atrial fibrillation. She was brought to undergo a cardioversion. The transesophageal echocardiogram to rule out any intracardiac thrombus. SEDATION: Conscious sedation COMPLICATION: None LEVEL OF SEDATION The patient was sedated using propofol with FILTERER in the room PROCEDURE DESCRIPTION: After obtaining an informed consent, the patient was brought to transesophageal echocardiogram room. Pulse oximetry and heart monitors were attached to the patient. The patient throat was sprayed using lidocaine. The patient was turned into left lateral position. After that a bite guard was placed. After an appropriate deep sedation was initiated, the transesophageal echocardiogram was advanced through a bite guard into the mid esophagus. A 2-D echocardiogram images, color Doppler images, continuous wave images, pulse-wave images, of various cardiac structure were performed. After that the transesophageal echocardiogram probe was advanced into the stomach and fixed to obtain transgastric view was. The probe was brought into the mid esophagus. Inter-atrial septum was interrogated using 2D images, color Doppler images, and then contrast study. After that transesophageal echocardiogram was withdrawn out and upon withdrawing the descending thoracic aorta all the way up to the arch was evaluated. FINDING: The left ventricle appeared to be within normal limits for dimension. The left ventricular systolic function appeared to be on the low limits of normal was EF around 50%. The right ventricle appeared to be of normal size and function. The aortic valve appears to be trileaflet valve and appears to be sclerotic but no stenosis or regurgitation. The mitral valve appears to have evidence what it seems to be ruptured chordae involving the anterior mitral leaflet with evidence of severe mitral regurgitation with a posteriorly directed jet. There was evidence of reversal of flow in the pulmonary veins. The tricuspid valve showed evidence of moderate tricuspid regurgitation. No evidence of pericardial effusion identified. CONCLUSION: 1. Low-normal left ventricular systolic function was EF of 50% 2. Intact left atrial appendage. Intact interatrial septum 3. Severe mitral regurgitation with posteriorly directed jet and evidence of reversal flow in the pulmonary veins 4. Moderate tricuspid regurgitation 5. Aortic sclerosis without stenosis or insufficiency 6. No evidence of pericardial effusion
--- NOTE | 2022-03-26 09:27 | P.PCN ---
Date of Procedure: 03/26/22 Operative Findings: Cardioversion Report Performing physician Gage Avilez M.D. Procedure performed Successful cardioversion of atrial fibrillation to normal sinus mechanism using 200 J at first attempt Indication Symptomatic atrial fibrillation Complication None Level of sedation The procedure was performed under deep sedation using propofol with HIV CTS SPECIALIST in the room Procedure description After obtaining an informed consent the patient was brought to the recovery room. Transesophageal echocardiogram was performed and intracardiac thrombus was pulled out Sedation was introduced using propofol with HIV CTS SPECIALIST in the room. Subsequently the patient cardioverted from atrial fibrillation to normal sinus mechanism using 200 J and first attempt Conclusion Successful cardioversion of atrial fibrillation to normal sinus mechanism using 200 J Postprocedure management Continue the current medical regimen Continue oral anticoagulation Follow-up with the patient
[2022-03-26 09:38] VITALS: BP 112/58; PULSE 66
== END 2022-03-26 09:50 | disposition home or self-care (01) ==
LOC: CATHCVL 06:31
PROVIDERS: ATTEND Internal Medicine Interventional Cardiology
DX: I08.1 Rheumatic disorders of both mitral and tricuspid valves (principal); I48.91 Unspecified atrial fibrillation; I10 Essential (primary) hypertension; E78.5 Hyperlipidemia, unspecified; E11.9 Type 2 diabetes mellitus without complications; Z20.822 Contact with and (suspected) exposure to COVID-19; Z81.0 Family history of intellectual disabilities; Z86.73 Personal history of transient ischemic attack (TIA), and cerebral infarction without residual deficits; E66.3 Overweight; I25.10 Atherosclerotic heart disease of native coronary artery without angina pectoris; Z95.5 Presence of coronary angioplasty implant and graft; E07.9 Disorder of thyroid, unspecified; N28.9 Disorder of kidney and ureter, unspecified; K21.9 Gastro-esophageal reflux disease without esophagitis; Z97.2 Presence of dental prosthetic device (complete) (partial); Z79.01 Long term (current) use of anticoagulants; Z79.82 Long term (current) use of aspirin; Z79.890 Hormone replacement therapy; Z79.891 Long term (current) use of opiate analgesic; Z79.899 Other long term (current) drug therapy; Z90.49 Acquired absence of other specified parts of digestive tract
CPT/HCPCS: 93312; 93320; 93325; 92960; 80048; 87635; J2704; J2001

== ENCOUNTER → 2022-11-24 | Day surgery (SDC) | payer MEDICARE ==
[~2022-11-24] MED LIST changes: -LACTATED RINGERS 1,000 ML IV SCH; +MIDAZOLAM 2 MG/2 ML VIAL IVP ONE; -SODIUM CHLORIDE 0.9% 1,000 ML IV SCH; +SODIUM CHLORIDE 0.9% 500 ML 500 ML IV ONE; +fentaNYL (PF) 50 MCG/ML 2 ML AMP IVP ONE; +fentaNYL (PF) 50 MCG/ML 2 ML AMP ONE
[2022-11-24 08:20] VITALS: TEMP 98
[2022-11-24] MEDS: BENZOCAINE SPRAY 1 CAN MUCOUS MEM ONE ×2 (10:03→10:10)
--- NOTE | 2022-11-24 10:28 | P.PCN ---
Date of Procedure: 11/24/22 Operative Findings: TRANSESOPHAGEAL ECHOCARDIOGRAM STAFF MINE WARFARE OFFICER: PRIMO ANN MD, RPVI INDICATION: Rule out infective endocarditis SEDATION: Conscious sedation COMPLICATION: None LEVEL OF SEDATION Moderate with sedation likes of 15 minutes PROCEDURE DESCRIPTION: After obtaining an informed consent, the patient was brought to transesophageal echocardiogram room. Pulse oximetry and heart monitors were attached to the patient. The patient throat was sprayed using lidocaine. The patient was turned into left lateral position. After that a bite guard was placed. After an appropriate conscious sedation was initiated, the transesophageal echocardiogram was advanced through a bite guard into the mid esophagus. A 2-D echocardiogram images, color Doppler images, continuous wave images, pulse-wave images, of various cardiac structure were performed. After that the transesophageal echocardiogram probe was advanced into the stomach and fixed to obtain transgastric view was. The probe was brought into the mid esophagus. Inter-atrial septum was interrogated using 2D images, color Doppler images. After that transesophageal echocardiogram was withdrawn out and upon withdrawing the descending thoracic aorta all the way up to the arch was evaluated. FINDING: The left ventricular dimension and systolic function appeared to be within normal limits sprayed the ejection fraction appears to be in the range of 60%. The right ventricle appeared to be of normal size and function. The left atrium appears to be dilated. The left atrial appendage appeared to be free from any thrombus. The mitral valve appeared to be thickened was evidence of moderate to severe mitral regurgitation. The aortic valve appears to be trileaflet valve with mild aortic insufficiency. There is moderate tricuspid regurgitation seen. There was an echogenic density identified in the LVOT seems to be likely representing healed vegetation. The echodensity is not attached aortic or mitral valve. CONCLUSION: 1. An echodensity was identified in the LVOT likely represent healed vegetation 2. Thickened mitral valve leaflets was moderate to severe mitral regurgitation 3. Aortic sclerosis with mild aortic insufficiency 4. Normal left ventricular dimension and systolic function 5. Normal right ventricular dimension and systolic function 6. No evidence of pericardial effusion
[2022-11-24 11:27] VITALS: RESP 16
[2022-11-24 11:29] VITALS: BP 171/81; PULSE 58
== END ==
LOC: CATHCVL 07:57
PROVIDERS: ATTEND Internal Medicine Interventional Cardiology
DX: I25.10 Atherosclerotic heart disease of native coronary artery without angina pectoris (principal); I10 Essential (primary) hypertension; E78.5 Hyperlipidemia, unspecified; E66.3 Overweight; Z79.82 Long term (current) use of aspirin; Z79.899 Other long term (current) drug therapy; Z79.01 Long term (current) use of anticoagulants
CPT/HCPCS: 93312; 93320; 93325; J2250; J3010

== ENCOUNTER 2023-12-03 07:49 | Day surgery (SDC) | payer MEDICARE ==
[2023-11-29 14:18] VITALS: BMI 32.4
[~2023-12-03 07:49] MED LIST changes: -MIDAZOLAM 2 MG/2 ML VIAL IVP ONE; +SODIUM CHLORIDE 0.9% 1,000 ML IV SCH; -SODIUM CHLORIDE 0.9% 500 ML 500 ML IV ONE; -fentaNYL (PF) 50 MCG/ML 2 ML AMP IVP ONE; -fentaNYL (PF) 50 MCG/ML 2 ML AMP ONE
[2023-12-03] MEDS ORDERED: SODIUM CHLORIDE 0.9% 250 ML IV ONE (08:25)
[2023-12-03 08:40] VITALS: TEMP 97.7
[2023-12-03 08:59] LABS: Anion Gap 11 mmol/L; Blood Urea Nitrogen 28 mg/dL (7-17); Calcium 10.1 mg/dL (8.4-10.2); Carbon Dioxide 24 mmol/L (22-30); Chloride 107 mmol/L (98-107); Glucose 119 mg/dL (74-99); Potassium 4.7 mmol/L (3.5-5.1); Sodium 142 mmol/L (137-145)
[2023-12-03] MEDS ORDERED: PROPOFOL 10 MG/ML 20 ML VIAL IV ONE (09:00)
[2023-12-03 09:14] LABS: African American GFR (CKD) 64 (>60 ml/min/1.73 sqM); Non-African American GFR(CKD) 56 (>60 ml/min/1.73 sqM)
[2023-12-03 10:27] VITALS: BP 137/81; PULSE 56; RESP 20
--- NOTE | 2023-12-03 11:48 | P.PCN ---
Date of Procedure: 12/03/23 Operative Findings: Cardioversion Report Performing physician Gage Avilez M.D. Procedure performed Successful cardioversion of atrial fibrillation to normal sinus mechanism using 200 J at first attempt Indication Symptomatic atrial fibrillation Complication None Level of sedation The procedure was performed under deep sedation using propofol with CHEMICAL WORKER in the room Procedure description After obtaining an informed consent the patient was brought to the recovery room. Sedation was introduced using propofol with CHEMICAL WORKER in the room. Subsequently the patient cardioverted from atrial fibrillation to normal sinus mechanism using 200 J and first attempt Conclusion Successful cardioversion of atrial fibrillation to normal sinus mechanism using 200 J Postprocedure management Continue the current medical regimen Continue oral anticoagulation Follow-up with the patient
== END 2023-12-03 10:46 ==
LOC: OR 07:49
PROVIDERS: ATTEND Internal Medicine Interventional Cardiology
DX: I25.10 Atherosclerotic heart disease of native coronary artery without angina pectoris (principal); I48.0 Paroxysmal atrial fibrillation; I10 Essential (primary) hypertension; E78.5 Hyperlipidemia, unspecified; E11.9 Type 2 diabetes mellitus without complications; I38 Endocarditis, valve unspecified; Z82.49 Family history of ischemic heart disease and other diseases of the circulatory system; Z86.73 Personal history of transient ischemic attack (TIA), and cerebral infarction without residual deficits; Z79.82 Long term (current) use of aspirin; Z79.899 Other long term (current) drug therapy
CPT/HCPCS: 92960; 80048; J2704

== ENCOUNTER 2024-05-12 12:49 | Emergency (ER) | payer MEDICARE ==
[2024-05-12 12:54] VITALS: TEMP 98
--- NOTE | 2024-05-12 13:21 | ED ---
Syncope HPI - General Chief Complaint: Fall Stated Complaint: Fall on thinners-head injury Time Seen by Provider: 05/12/24 12:59 Source: patient, RN notes reviewed, old records reviewed Mode of arrival: ambulatory Limitations: no limitations - History of Present Illness Initial Comments: This is a 74-year-old female to the ER for evaluation today. Patient presents today for evaluation regards to syncopal event that occurred prior to arrival. Patient states she has had a fever and swelling for about a week now decreased appetite and decreased activity level. Body aches and pains and when she did pass out she did hit her head. Chest pain or shortness of breath no other complaints MD Complaint: loss of consciousness, felt faint, almost passed out, collapsed -: days(s) Prodromal Symptoms: none, lightheaded -: second(s) Witnessed: yes - by bystander Injuries Sustained Associated with Event: None Current Symptoms: lightheaded History: previous syncopal episode Treatments Prior to Arrival: none - Related Data Home Medications Medication Instructions Recorded Confirmed Aspirin EC [Ecotrin Low Dose] 81 mg PO HS 04/17/21 12/03/23 Atorvastatin Calcium [Lipitor] 10 mg PO HS 04/17/21 12/03/23 Calcium Carbonate [Calcium] 600 mg PO HS 04/17/21 12/03/23 Cholecalciferol [Vitamin D3 (25 50 mcg PO DAILY 04/17/21 12/03/23 Mcg = 1000 Iu)] Famotidine [Pepcid AC] 10 mg PO DAILY PRN 04/17/21 12/03/23 Levothyroxine Sodium [Synthroid] 100 mcg PO AC-BRKFST 04/17/21 12/03/23 Losartan Potassium 100 mg PO QAM 04/17/21 12/03/23 Metoprolol Tartrate [Lopressor] 100 mg PO BID 04/17/21 12/03/23 Multivitamins, Thera [Multivitamin 1 tab PO DAILY 04/17/21 12/03/23 (formulary)] allopurinoL [Zyloprim] 100 mg PO 1200 04/17/21 12/03/23 Apixaban [Eliquis] 5 mg PO BID 03/24/22 12/03/23 [place]-3 Fatty Acids [[place]-3] 1,000 mg PO DAILY 11/20/22 12/03/23 Citalopram Hydrobromide 20 mg PO DAILY 11/29/23 12/03/23 [Citalopram HBr] HYDROcodone/APAP 5-325MG [Bonifay 1 tab PO Q6HR PRN 11/29/23 12/03/23 5-325] Magnesium Oxide [Mag-Ox] 400 mg PO DAILY 11/29/23 12/03/23 Allergies Allergy/AdvReac Type Severity Reaction Status Date / Time No Known Allergies Allergy Verified 05/12/24 12:54 Review of Systems ROS Statement: Those systems with pertinent positive or pertinent negative responses have been documented in the HPI. ROS Other: All systems not noted in ROS Statement are negative. 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 History of Any Multi-Drug Resistant Organisms: None Reported Past Surgical History: Cholecystectomy, Heart Catheterization With Stent Additional Past Surgical History / Comment(s): Stents, rakel cataracts removed, COLONOSCOPY, RT KNEE SCOPE, IHSAN Past Anesthesia/Blood Transfusion Reactions: No Reported Reaction Date of Last Stent Placement:: 01/2013 Past Psychological History: Depression Smoking Status: Never smoker Past Alcohol Use History: Rare Past Drug Use History: None Reported - Past Family History Mother Family Medical History: No Reported History General Exam Limitations: no limitations General appearance: alert, in no apparent distress, anxious Head exam: Present: atraumatic, normocephalic, normal inspection Eye exam: Present: normal appearance, PERRL, EOMI. Absent: scleral icterus, conjunctival injection, periorbital swelling ENT exam: Present: normal exam, mucous membranes moist Neck exam: Present: normal inspection. Absent: tenderness, meningismus, lymphadenopathy Respiratory exam: Present: normal lung sounds bilaterally. Absent: respiratory distress, wheezes, rales, rhonchi, stridor Cardiovascular Exam: Present: regular rate, normal rhythm, normal heart sounds. Absent: systolic murmur, diastolic murmur, rubs, gallop, clicks GI/Abdominal exam: Present: soft, normal bowel sounds. Absent: distended, tenderness, guarding, rebound, rigid Extremities exam: Present: normal inspection, full ROM, normal capillary refill. Absent: tenderness, pedal edema, joint swelling, calf tenderness Back exam: Present: normal inspection Neurological exam: Present: alert, oriented X3, CN II-XII intact Psychiatric exam: Present: normal affect, normal mood Skin exam: Present: warm, dry, intact, normal color. Absent: rash Course Vital Signs 05/12/24 05/12/24 05/12/24 12:52 14:00 17:26 Temperature 98.0 F Pulse Rate 64 62 71 Respiratory 17 16 16 Rate Blood Pressure 131/78 121/69 121/77 O2 Sat by Pulse 99 99 96 Oximetry - Reevaluation(s) Reevaluation #1: 05/12/24 17:17 Medical record is reviewed Reevaluation #2: 05/12/24 17:17 Patient symptoms are improved Reevaluation #3: 05/12/24 17:17 Patient was informed of results and questions answered Reevaluation #4: Was pt. sent in by a medical professional or institution (, PA, PRE PRESS PROOFER, urgent care, hospital, or [facility]...) When possible be specific @ -no Did you speak to anyone other than the patient for history (EMS, parent, family, police, friend...)? What history was obtained from this source @ -no Did you review nursing and triage notes (agree or disagree)? Why? @ -agree Are old charts reviewed (outside hosp., previous admission, EMS record, old EKG, old radiological studies, urgent care reports/EKG's, [facility] records)? Report findings @ -yes Differential Diagnosis (chest pain, altered mental status, abdominal pain women, abdominal pain men, vaginal bleeding, weakness, fever, dyspnea, syncope, headache, dizziness, GI bleed, back pain, seizure, CVA, palpatations, mental health, musculoskeletal)? @ -prior EKG interpreted by me (3pts min.). @ -yes X-rays interpreted by me (1pt min.). @ -yes negative for acute disease CT interpreted by me (1pt min.). @ -no U/S interpreted by me (1pt. min.). @ -no What testing was considered but not performed or refused? (CT, X-rays, U/S, labs)? Why? @ -none What meds were considered but not given or refused? Why? @ -none Did you discuss the management of the patient with other professionals (professionals i.e. , PA, PRE PRESS PROOFER, lab, RT, psych nurse, social services, steeler, teacher, principal gifts officer, cyanide case hardener)? Give summary @ -no Was smoking cessation discussed for >3mins.? @ -no Was critical care preformed (if so, how long)? @ -no Were there social determinants of health that impacted care today? How? (Homele ssness, low income, unemployed, alcoholism, drug addiction, transportation, low edu. Level, literacy, decrease access to med. care, detention, rehab)? @ -none Was there de-escalation of care discussed even if they declined (Discuss DNR or withdrawal of care, Hospice)? DNR status @ -no What co-morbidities impacted this encounter? (DM, HTN, Smoking, COPD, CAD, Cancer, CVA, ARF, Chemo, Hep., AIDS, mental health diagnosis, sleep apnea, morbid obesity)? @ -none Was patient admitted / discharged? Hospital course, mention meds given and route, prescriptions, significant lab abnormalities, going to OR and other pertinent info. @ - 74 female to ER with coronavirus, patient has severe dehydration and s yncopal event prior to arrival but feels much better here in the ER feels well now can be discharged home Discharge Undiagnosed new problem with uncertain prognosis? @ -no Drug Therapy requiring intensive monitoring for toxicity (Heparin, Nitro, Insulin, Cardizem)? @ -no Were any procedures done? @ -no Diagnosis/symptom? @ -CoronaVirus and weakness Acute, or Chronic, or Acute on Chronic? @ -Acute Uncomplicated (without systemic symptoms) or Complicated (systemic symptoms)? @ -Complicated Side effects of treatment? @ -no Exacerbation, Progression, or Severe Exacerbation? @ -exacerbation Poses a threat to life or bodily function? How? (Chest pain, USA, AL, pneumonia, PE, COPD, DKA, ARF, appy, cholecystitis, CVA, Diverticulitis, Homicidal, Suicidal, threat to staff... and all critical care pts) @ -yes Reevaluation #5: Differential Syncope: Valvular disease, hypertrophic cardiomyopathy, pulmonary embolism, tamponade, tachycardia, bradycardia, AL, hypovolemia, hemorrhage, dissection, anemia, intracranial hemorrhage, seizure, hypoglycemia, carbon monoxide poisoning, this is not meant to be an all-inclusive list. EKG Findings - EKG Comments: EKG Findings:: EKG is sinus 62 AZ 124 QRS 94 QTc 392 - EKG Results: EKG: interpreted by YVETTE Medical Decision Making - Medical Decision Making 74 female to ER with coronavirus, patient has severe dehydration and syncopal event prior to arrival but feels much better here in the ER feels well now can be discharged home - Lab Data Result diagrams: 05/12/24 13:31 05/12/24 13:31 Lab Results 05/12/24 05/12/24 05/12/24 Range/Units 13:31 13:31 13:31 WBC 5.9 (3.8-10.6) k/uL RBC 4.10 (3.80-5.40) m/uL Hgb 13.4 (11.4-16.0) gm/dL Hct 41.5 (34.0-46.0) % MCV 101.2 H (80.0-100.0) fL MCH 32.7 (25.0-35.0) pg MCHC 32.3 (31.0-37.0) g/dL RDW 13.4 (11.5-15.5) % Plt Count 225 (150-450) k/uL MPV 8.1 Neutrophils % 59 % Lymphocytes % 28 % Monocytes % 5 % Eosinophils % 6 % Basophils % 1 % Neutrophils # 3.5 (1.3-7.7) k/uL Lymphocytes # 1.7 (1.0-4.8) k/uL Monocytes # 0.3 (0-1.0) k/uL Eosinophils # 0.3 (0-0.7) k/uL Basophils # 0.1 (0-0.2) k/uL Macrocytosis Slight PT 10.5 (10.0-12.5) sec INR 0.9 (<1.2) APTT 27.5 (22.0-30.0) sec D-Dimer 0.59 (<0.60) mg/L FEU Sodium 138 (137-145) mmol/L Potassium 4.6 (3.5-5.1) mmol/L Chloride 109 H (98-107) mmol/L Carbon Dioxide 19 L (22-30) mmol/L Anion Gap 10 mmol/L BUN 28 H (7-17) mg/dL Creatinine 0.93 (0.52-1.04) mg/dL Est GFR (CKD-EPI)AfAm 72 (>60 ml/min/1.73 sqM) Est GFR (CKD-EPI)NonAf 62 (>60 ml/min/1.73 sqM) Glucose 142 H (74-99) mg/dL Calcium 9.2 (8.4-10.2) mg/dL Magnesium 1.6 (1.6-2.3) mg/dL Total Bilirubin 0.6 (0.2-1.3) mg/dL AST 27 (14-36) U/L ALT 26 (4-34) U/L Alkaline Phosphatase 90 (38-126) U/L Troponin I (0.000-0.034) ng/mL Total Protein 7.1 (6.3-8.2) g/dL Albumin 4.4 (3.5-5.0) g/dL Influenza Type A (PCR) (Not Detectd) Influenza Type B (PCR) (Not Detectd) RSV (PCR) (Not Detectd) SARS-CoV-2 (PCR) (Not Detectd) 05/12/24 05/12/24 Range/Units 13:31 13:31 WBC (3.8-10.6) k/uL RBC (3.80-5.40) m/uL Hgb (11.4-16.0) gm/dL Hct (34.0-46.0) % MCV (80.0-100.0) fL MCH (25.0-35.0) pg MCHC (31.0-37.0) g/dL RDW (11.5-15.5) % Plt Count (150-450) k/uL MPV Neutrophils % % Lymphocytes % % Monocytes % % Eosinophils % % Basophils % % Neutrophils # (1.3-7.7) k/uL Lymphocytes # (1.0-4.8) k/uL Monocytes # (0-1.0) k/uL Eosinophils # (0-0.7) k/uL Basophils # (0-0.2) k/uL Macrocytosis PT (10.0-12.5) sec INR (<1.2) APTT (22.0-30.0) sec D-Dimer (<0.60) mg/L FEU Sodium (137-145) mmol/L Potassium (3.5-5.1) mmol/L Chloride (98-107) mmol/L Carbon Dioxide (22-30) mmol/L Anion Gap mmol/L BUN (7-17) mg/dL Creatinine (0.52-1.04) mg/dL Est GFR (CKD-EPI)AfAm (>60 ml/min/1.73 sqM) Est GFR (CKD-EPI)NonAf (>60 ml/min/1.73 sqM) Glucose (74-99) mg/dL Calcium (8.4-10.2) mg/dL Magnesium (1.6-2.3) mg/dL Total Bilirubin (0.2-1.3) mg/dL AST (14-36) U/L ALT (4-34) U/L Alkaline Phosphatase (38-126) U/L Troponin I 0.043 H* (0.000-0.034) ng/mL Total Protein (6.3-8.2) g/dL Albumin (3.5-5.0) g/dL Influenza Type A (PCR) Not Detected (Not Detectd) Influenza Type B (PCR) Not Detected (Not Detectd) RSV (PCR) Not Detected (Not Detectd) SARS-CoV-2 (PCR) Detected A (Not Detectd) - Radiology Data Radiology results: report reviewed (Chest x-ray and CT brain are negative for acute disease), image reviewed Disposition Clinical Impression: Weakness, Dehydration, Syncope, Coronavirus infection Disposition: HOME SELF-CARE Condition: Good Instructions (If sedation given, give patient instructions): Dehydration (ED), Syncope (ED) Is patient prescribed a controlled substance at d/c from ED?: No Referrals: Osman Estrada [Primary Care Provider] - 1-2 days Time of Disposition: 17:00
[2024-05-12] MEDS: SODIUM CHLORIDE 0.9% 1,000 ML IV STA (13:42)
[2024-05-12] MEDS: SODIUM CHLORIDE 0.9% 500 ML 500 ML IV STA (13:43)
[2024-05-12 13:47] LABS: Basophils # (A) 0.1 k/uL (0-0.2); Basophils % (A) 1 %; Eosinophils # (A) 0.3 k/uL (0-0.7); Eosinophils % (A) 6 %; HCT 41.5 % (34.0-46.0); HGB 13.4 gm/dL (11.4-16.0); Lymphocytes # (A) 1.7 k/uL (1.0-4.8); Lymphocytes % (A) 28 %; MCH 32.7 pg (25.0-35.0); MCHC 32.3 g/dL (31.0-37.0); MCV 101.2 fL (80.0-100.0); Macrocytosis Slight; Mean Platelet Volume 8.1; Monocytes # (A) 0.3 k/uL (0-1.0); Monocytes % (A) 5 %; Neutrophils # (A) 3.5 k/uL (1.3-7.7); Neutrophils % (A) 59 %; Platelet Count 225 k/uL (150-450); RDW 13.4 % (11.5-15.5); WBC 5.9 k/uL (3.8-10.6)
[2024-05-12 14:00] LABS: INR 0.9 (<1.2); Partial Thromboplastin Time 27.5 sec (22.0-30.0); Prothrombin Time 10.5 sec (10.0-12.5)
[2024-05-12 14:02] LABS: ALT 26 U/L (4-34); AST 27 U/L (14-36); African American GFR (CKD) 72 (>60 ml/min/1.73 sqM); Albumin 4.4 g/dL (3.5-5.0); Alkaline Phosphatase 90 U/L (38-126); Anion Gap 10 mmol/L; Blood Urea Nitrogen 28 mg/dL (7-17); Calcium 9.2 mg/dL (8.4-10.2); Carbon Dioxide 19 mmol/L (22-30); Chloride 109 mmol/L (98-107); Glucose 142 mg/dL (74-99); Magnesium 1.6 mg/dL (1.6-2.3); Non-African American GFR(CKD) 62 (>60 ml/min/1.73 sqM); Potassium 4.6 mmol/L (3.5-5.1); Sodium 138 mmol/L (137-145); Total Bilirubin 0.6 mg/dL (0.2-1.3); Total Protein 7.1 g/dL (6.3-8.2)
[2024-05-12 14:34] VITALS: RESP 16
[2024-05-12] MEDS: ACETAMINOPHEN IV (For NPO) 1,000 MG in EMPTY BAG 1 BAG IVPB STA (15:13)
[2024-05-12] MEDS: DEXAMETHASONE SOD PHOSPHATE 10 MG/ML 1 ML VIAL IVP STA (15:16)
[2024-05-12] MEDS: IBUPROFEN IV 800 MG in SODIUM CHLORIDE 0.9% 250 ML IV ONE (15:42)
--- NOTE | 2024-05-12 16:30 | CT ---
EXAMINATION TYPE: CT brain cspine wo con CT DLP: dlp 1428.3 passed out hit head on night stand / has prior mGycm, Automated exposure control f or dose reduction was used. DATE OF EXAM: 05/12/2024 3:56 PM COMPARISON: 04/17/2021 CLINICAL INDICATION:Female, 74 years old with history of cp; passed out hit head on night stand / has prior TECHNIQUE: Brain: Multiple axial CT images of the brain were obtained without IV contrast. Cspine: Axial CT images from the skull base to the inferior aspect of T2 we obtained without intraven ous contrast. Coronal and sagittal reformatted images were also reviewed. . FINDINGS: Brain: Extra-axial spaces: No abnormal extra-axial fluid collections. Ventricular system: Within normal limits Cerebral parenchyma: No acute intraparenchymal hemorrhage or mass effect. The harden-white junction is well differentiated. Cerebellum: Unremarkable. Mass effect: No evidence of midline shift. Intracranial vasculature: unremarkable Soft tissues: Scalp hematoma near the skull vertex measuring 36 x 4 mm Calvarium/osseous structures: No depressed skull fracture. Paranasal sinuses and mastoid air cells: Mild scattered mucosal thickening and or secretions. Visualized orbits: Bilateral aphakia Cervical spine: Fracture: None. Osseous structures: Multilevel degenerative disc disease changes with endplate spurring and disc oste ophyte complex's. Vertebral alignment: Within normal limits. Spinal canal/Neural Foramina: Spinal canal stenosis worse at C5-C6 with at least mild to moderate No evidence for significant neural foraminal stenosis. Neck soft tissues: Prevertebral soft tissues are within normal limits. Other: The airway is patent. The lung apices are clear. IMPRESSION: 1. No acute intracranial process. 2. Scalp hematoma. 3. No evidence of cervical spine fracture. 4. Moderate multilevel degenerative disc disease. 5. At least Mild to moderate spinal canal stenosis at C5-C6.
--- NOTE | 2024-05-12 16:32 | XR ---
EXAMINATION TYPE: XR chest 1V DATE OF EXAM: 05/12/2024 4:22 PM CLINICAL INDICATION:Female, 74 years old with history of fall,cough; COMPARISON: Chest radiographs from 04/17/2021 TECHNIQUE: XR chest 1V Frontal view of the chest. FINDINGS: Lungs/Pleura: There is no evidence of pleural effusion, focal consolidation, or pneumothorax. Pulmonary vascularity: Unremarkable. Heart/mediastinum: Cardiomediastinal silhouette is unremarkable. Musculoskeletal: No acute osseous pathology. IMPRESSION: No acute cardiopulmonary disease/process.
[2024-05-12 17:27] VITALS: BP 121/77; PULSE 71
== END 2024-05-12 17:30 | disposition home or self-care (01) ==
LOC: EC 12:49
DX: U07.1 COVID-19 (principal); E86.0 Dehydration; R55 Syncope and collapse
CPT/HCPCS: 36415; 93005; 85379; 80053; 83735; 84484; 85025; 85610; 85730; 87636; 71045; 72125; 70450; 99284; 96365; 96367; 96375; 96361 ×2; J1100; J0131; J1741

== ENCOUNTER 2024-09-01 06:18 | Day surgery (SDC) | payer MEDICARE ==
[~2024-09-01 06:18] MED LIST changes: +SODIUM CHLORIDE 0.9% 1,000 ML IV ONE; -SODIUM CHLORIDE 0.9% 1,000 ML IV SCH
[2024-09-01] MEDS: IV FLUID CONTINUATION 500 ML IV ONE (06:38)
[2024-09-01] MEDS: SODIUM CHLORIDE 0.9% 500 ML DEHP FREE BAG IV STA (07:17)
[2024-09-01] MEDS ORDERED: PROPOFOL 10 MG/ML 20 ML VIAL IV ONE (07:23)
[2024-09-01 07:31] VITALS: TEMP 98
[2024-09-01 07:40] LABS: African American GFR (CKD) 58 (>60 ml/min/1.73 sqM); Anion Gap 15 mmol/L; Blood Urea Nitrogen 25 mg/dL (7-17); Calcium 9.9 mg/dL (8.4-10.2); Carbon Dioxide 15 mmol/L (22-30); Chloride 113 mmol/L (98-107); Glucose 105 mg/dL (74-99); Non-African American GFR(CKD) 50 (>60 ml/min/1.73 sqM); Sodium 143 mmol/L (137-145)
[2024-09-01 07:52] LABS: Potassium 5.2 mmol/L (3.5-5.1)
--- NOTE | 2024-09-01 08:19 | P.PCN ---
Date of Procedure: 09/01/24 Operative Findings: Cardioversion Report Performing physician Gage Avilez M.D. Procedure performed Successful cardioversion of atrial fibrillation to normal sinus mechanism using 120 J at first attempt Indication Symptomatic atrial fibrillation Complication None Level of sedation The procedure was performed under deep sedation using propofol with OPEN HEARTH WORKER in the room Procedure description After obtaining an informed consent the patient was brought to the recovery room. Sedation was introduced using propofol with OPEN HEARTH WORKER in the room. Subsequently the patient cardioverted from atrial fibrillation to normal sinus mechanism using 200 J and first attempt Conclusion Successful cardioversion of atrial fibrillation to normal sinus mechanism using 200 J Postprocedure management Continue the current medical regimen Continue oral anticoagulation Follow-up with the patient
[2024-09-01 08:58] VITALS: PULSE 57
[2024-09-01 09:11] VITALS: BP 116/71; RESP 16
== END 2024-09-01 09:33 | disposition home or self-care (01) ==
LOC: OR 06:18
PROVIDERS: ATTEND Internal Medicine Interventional Cardiology
DX: I48.0 Paroxysmal atrial fibrillation (principal); I10 Essential (primary) hypertension; I25.10 Atherosclerotic heart disease of native coronary artery without angina pectoris; E78.5 Hyperlipidemia, unspecified; I12.9 Hypertensive chronic kidney disease with stage 1 through stage 4 chronic kidney disease, or unspecified chronic kidney disease; N18.1 Chronic kidney disease, stage 1; E66.3 Overweight; F41.8 Other specified anxiety disorders; K21.9 Gastro-esophageal reflux disease without esophagitis; Z95.5 Presence of coronary angioplasty implant and graft; Z79.01 Long term (current) use of anticoagulants; Z79.899 Other long term (current) drug therapy; Z86.73 Personal history of transient ischemic attack (TIA), and cerebral infarction without residual deficits
CPT/HCPCS: 92960; 80048; 99152; 99153; J2704

== ENCOUNTER → 2024-09-15 | Outpatient (CLI) | payer MEDICARE ==
[2024-09-16 02:28] LABS: BUN/Creat Ratio 21.45 Ratio (12.00-20.00); Blood Urea Nitrogen 23.6 mg/dL (9.0-27.0); Calcium 9.6 mg/dL (8.7-10.3); Carbon Dioxide 22.2 mmol/L (21.6-31.8); Chloride 105 mmol/L (96-109); Glucose 112 mg/dL (70-110); Potassium 4.1 mmol/L (3.5-5.5); Sodium 140 mmol/L (135-145)
== END | disposition home or self-care (01) ==
LOC: LABWHC1 15:54
PROVIDERS: ATTEND Internal Medicine Interventional Cardiology
DX: I10 Essential (primary) hypertension (principal)
CPT/HCPCS: 36415; 80048